=== PATIENT | male | born 1975 | race Caucasian/White ===

== ENCOUNTER 2023-03-13 17:06 | Inpatient (IN) | payer OTHER, SELFPAY ==
[2023-03-13] VITALS (24 sets, daily range): BP systolic 109–142; BP diastolic 70–104; PULSE 80–101; RESP 14–29; TEMP 36.5–36.7; O2SAT 91–99; BMI 31.3
--- NOTE | ~2023-03-13 | XR_ITS ---
EXAMINATION: XR chest 1V portable DATE: 03/13/2023 17:43 INDICATION: ST elevation myocardial infarction. TECHNIQUE: A single frontal view of the chest was obtained. COMPARISON: Chest 2 views 06/19/2007 FINDINGS: The chest demonstrates clear lungs without pneumonia, pleural effusion, or pneumothorax. Th e heart size is normal. IMPRESSION: 1. No acute cardiopulmonary disease. Reviewed, dictated and finalized at location E.
--- NOTE | 2023-03-13 17:07 | ECG_ITS ---
Measurements Intervals [place] Rate: 87 P: 54 MA: 172 QRS: 61 QRSD: 113 T: 16 QT: 344 QTc: 415 Interpretive Statements SINUS RHYTHM INCOMPLETE LEFT BUNDLE BRANCH BLOCK HIGH LATERAL ST ELEVATION MYOCARDIAL INJURY- ACUTE BASELINE WANDER- III, V1-V2, V4, V6 ABNORMAL ECG NO PREVIOUS ECG AVAILABLE FOR COMPARISON Electronically Signed On 03-13-2023 21:19:38 CDT by Maikol Dickinson D.O.
[2023-03-13 17:25] LABS: Basophils Absolute Auto 0.1 K/mm3 (0.0-0.1); Basophils Percent Auto 0.4 % (0.2-1.2); Eosinophils Absolute Auto 0.2 K/mm3 (0-0.3); Eosinophils Percent Auto 1.5 % (0-4.4); Hematocrit 43.7 % (42.0-52.0); Hemoglobin 15.3 g/dL (14.0-18.0); Immature Granulocyte Absolute 0.07 K/mm3 (0.00-0.031); Immature Granulocyte Percent A 0.4 % (0-0.5); Lymphocytes Absolute Auto 4.57 K/mm3 (0.9-3.2); Lymphocytes Percent Auto 29.2 % (18.3-44.2); Mean Corpuscular Hemoglobin 28.4 pg (26-34); Mean Corpuscular Volume 81.1 fl (80-100); Mean Platelet Volume 9.6 fl (7.4-10.4); Monocytes Percent Auto 6.1 % (2.6-8.5); Neutrophils Absolute Auto 9.8 K/mm3 (1.3-6.7); Neutrophils Percent Auto 62.4 % (45.5-73.1); Platelet Count Result 343 k/mm3 (150-375); Red Blood Count 5.39 M/mm3 (4.6-6.20); Red Cell Distribution Width 13.1 % (11.5-14.5); White Blood Count 15.7 K/mm3 (4.5-10.0)
[2023-03-13] MEDS: ASPIRIN 81 MG CHEWABLE TABLET 324 MG PO (17:27)
--- NOTE | 2023-03-13 17:27 | ED.CHESTPAIN ---
HPI - Chest Pain General Chief Complaint: Chest Pain Stated Complaint: chest pain/left shoulder pain Time Seen by Provider: 03/13/23 17:15 Source: patient Mode of arrival: wheelchair Limitations: no limitations History of Present Illness HPI narrative: Patient is a 48-year-old male with a history of hypertension, hyperlipidemia, coronary artery disease with history of LAD stenting from myocardial infarction in 2013, presenting to the emergency department for evaluation of chest pain. Patient reports intermittent chest pain for the past 3 hours, pain is in the left side of the chest with radiation to the left shoulder. Patient reports associated diaphoresis. He denies nausea, vomiting, shortness of breath. Pain does worsen with exertion. Patient denies any lower extremity edema or calf pain. No recent long car or air travel. No ripping or tearing sensation to the back or flank. No syncope. 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 Moreno. He does not recall the last time he had a stress test. He is not able to state what medications he takes. He reports that he does still smoke. Related Data Home Medications Medication Instructions Recorded Confirmed aspirin 81 mg tablet,delayed 81 mg PO DAILY 12/13/19 release ezetimibe 10 mg tablet 10 mg PO DAILY 12/13/19 fenofibrate nanocrystallized 145 145 mg PO DAILY 12/13/19 mg tablet lisinopril 10 mg tablet 40 mg PO DAILY 12/13/19 rosuvastatin 20 mg tablet 40 mg PO DAILY 12/13/19 Allergies Allergy/AdvReac Type Severity Reaction Status Date / Time No Known Allergies Allergy Verified 03/13/23 17:06 Review of Systems Review of Systems: CONSTITUTIONAL: Denies fever, chills, reports diaphoresis EYES: Denies visual changes, redness, or discharge. ENT: Denies rhinorrhea, congestion, sore throat, or otalgia. CARDIOVASCULAR: Reports left-sided chest pain without palpitations, or edema. RESPIRATORY: Denies cough or dyspnea. GASTROINTESTINAL: Denies abdominal pain, nausea, vomiting, or diarrhea. GENITOURINARY: Denies dysuria or hematuria. SKIN: Denies rash or itching. MUSCULOSKELETAL: Denies back pain, joint pain, or myalgia. NEUROLOGIC: Denies headache, numbness, or weakness. [facility] Past Medical History Medical History (Updated 03/13/23 @ 17:47 by Saige Abreu MD) Diabetes type 2, controlled Elevated liver function tests Essential hypertension Mixed hyperlipidemia Family History Family History Father Hypertension Mother Hypertension Grandparent Malignant neoplasm of prostate Social History Social History Smoking status: Light tobacco smoker Alcohol intake: never Exam Narrative: GENERAL: Awake, alert, conversant, patient is diaphoretic HEAD: Normocephalic, atraumatic. EYES: PERRLA and EOMI. ENT: Nares clear, no rhinorrhea or epistaxis. Mucous membranes moist. NECK: Supple. CHEST: No respiratory distress, breathing even and non labored, no chest wall tenderness HEART: Regular rate, sinus rhythm ABDOMEN:Non distended, non tender EXTREMITIES: Normal range of motion. No edema. SKIN: Warm, dry, no rash. NEURO:No focal deficits. Alert and oriented x3 Course Vital Signs Vital signs: Vital Signs Temperature 36.7 C 03/13/23 17:11 Pulse Rate 91 03/13/23 17:11 Respiratory Rate 16 03/13/23 17:11 Blood Pressure 131/70 03/13/23 17:11 Pulse Oximetry 97 03/13/23 17:11 Oxygen Delivery Room Air 03/13/23 17:11 Temperature 36.7 C 03/13/23 17:11 Pulse Rate 95 03/13/23 17:46 Respiratory Rate 28 H 03/13/23 17:46 Blood Pressure 142/104 H 03/13/23 17:46 Pulse Oximetry 97 03/13/23 17:46 Oxygen Delivery Room Air 03/13/23 17:20 MDM - Chest Pain MDM Narrative Medical decision making narrative: Medical decision making narrative: -Presentation: Patient presenting for evaluation of left-sided chest pain with
[2023-03-13] MEDS: SODIUM CHLORIDE 0.9% IV 1,000 ML 30 ML IV CONT (17:30)
[2023-03-13] MEDS: HEPARIN SODIUM 5,000 UNITS/ML VIAL 4000 UNITS IV PUSH (17:32)
[2023-03-13] MEDS: ONDANSETRON INJ 4 MG/2 ML VIAL IV PUSH (17:33)
[2023-03-13] MEDS: TICAGRELOR 90 MG TABLET 180 MG PO (17:34)
[2023-03-13 17:35] LABS: INR 0.9; Partial Thromboplastin Time 24.5 SECONDS (22.3-36.8); Prothrombin Time 12.9 Seconds (11.1-14.7)
[2023-03-13 17:38] LABS: Alanine Aminotransferase 37 U/L (6-50); Albumin Level 4.4 g/dL (3.5-5.1); Alkaline Phosphatase 79 U/L (38-126); Anion Gap 10 mmol/L (8-16); Aspartate Amino Transferase 29 U/L (17-59); Bilirubin,Total 0.8 mg/dL (0.2-1.3); Blood Urea Nitrogen 14 mg/dL (9-20); Carbon Dioxide 24 mmol/L (22-30); Chloride 100 mmol/L (98-107); Estimated CRCL calculation 139 ml/min; Estimated Glomerular Filt Rate > 60; Glucose 271 mg/dL (65-110); Lipase 92 U/L (23-300); Potassium 3.8 mmol/L (3.4-5.0); Sodium 134 mmol/L (137-145)
[2023-03-13] MEDS: MORPHINE SULFATE (*CRX) 2 MG/ML INJ IV PUSH (17:39)
--- NOTE | 2023-03-13 17:40 | PC.NURSE ---
17:15 Stemi Declared 17:15 O/H paged [phone] Beaver contacted [phone] [facility] for cardiac cath stand by
[2023-03-13 17:42] LABS: Anion Gap 9 mmol/L (8-16); Blood Urea Nitrogen 14 mg/dL (9-20); Carbon Dioxide 25 mmol/L (22-30); Chloride 99 mmol/L (98-107); Cholesterol 146 mg/dL (0-200); Estimated CRCL calculation 139 ml/min; Estimated Glomerular Filt Rate > 60; Glucose 267 mg/dL (65-110); HDL Direct 43 mg/dL; Potassium 3.9 mmol/L (3.4-5.0); Sodium 133 mmol/L (137-145); Triglycerides 226 mg/dL (<150)
[2023-03-13 17:43] LABS: INR 0.9; Prothrombin Time 12.7 Seconds (11.1-14.7)
[2023-03-13 17:44] LABS: Partial Thromboplastin Time 24.2 SECONDS (22.3-36.8)
[2023-03-13 17:52] LABS: LDL Cholesterol Direct 79 mg/dL
[2023-03-13 17:53] LABS: Troponin I 0.066 ng/mL (0.000-0.034)
[2023-03-13] MEDS: MORPHINE SULFATE (*CRX) 4 MG/ML INJ IV PUSH (17:58)
[2023-03-13 18:23] LABS: Troponin I 0.066 ng/mL (0.000-0.034)
--- NOTE | 2023-03-13 19:25 | PM.IMHP ---
H&P: HPI History of Present Illness Date/Time: 03/13/23 19:25 Chief Complaint: Chest pain x approximately 2 hours Narrative: 48-year-old male with known CAD, history of non ST elevation [place], status post PCI/ 3.25 x 23 mm Xience everolimus eluting stent placement on 02/08/2013; hypertension, ? Diabetes mellitus, dyslipidemia, tobacco abuse. Patient presented to [facility] Emergency Room where personal transportation with complaints of chest pain that started about 2 hours prior to arrival. He denied any associated symptoms including shortness of breath, palpitation, dizziness or syncope. He has known CAD, and reported compliance with medical regimen although patient did not recall what medications he is on. EKG in the emergency room which I personally evaluated showed sinus rhythm, ST-elevation in the lateral leads with reciprocal ST depression. Cardiac catheterization lab was activated. Patient received aspirin, loading dose of ticagrelor, and loading dose unfractionated heparin in the ER. Emergent coronary angiogram showed multivessel CAD- 100% thrombotic occlusion of large caliber proximal segment of ramus intermedius -infarct related vessel; 60-70% InStent restenosis proximal LAD, high-grade ostial stenosis diagonal branch, totally occluded RCA with [id number] collaterals. Patient underwent successful primary PCI/ SAMRA x1 proximal ramus intermedius with mosque of DAISY 3 flow. 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 Left ventriculogram showed dyskinetic apical inferior segment, hyperdynamic basal segments, ejection fraction about 60%. LVEDP 29 mmHg. Chest pain resolved after successful PCI. Review of Systems Review of Systems: General: Negative for fever, chills, fatigue Psychological: Negative for anxiety, depression Ophthalmic: negative for loss of vision ENT: Negative for epistaxis, headaches Allergy and immunology: Negative for hives, nasal congestion Hematologic and lymphatic: Negative for overt bleeding problems Endocrine: Negative for hot flashes, palpitations Respiratory: Negative for cough, hemoptysis Cardiovascular: positive for chest pain, no shortness of breath, palpitation, dizziness or syncope Gastrointestinal: Negative for abdominal pain, nausea, vomiting, hematochezia Musculoskeletal: Negative for myalgia, joint pains Neurological: Negative for weakness Dermatological: Negative for rash, skin discoloration PMFSH Past Medical History Medical History (Updated 03/13/23 @ 19:33 by Catalino Beaver MD) Diabetes type 2, controlled Elevated liver function tests Essential hypertension Mixed hyperlipidemia Surgical History Surgical History (Updated 03/13/23 @ 19:27 by Catalino Beaver MD) H/O hernia repair Family History Family History Father Hypertension Mother Hypertension Grandparent Malignant neoplasm of prostate Social History Social History (Updated 03/13/23 @ 19:28 by Catalino Beaver MD) Smoking status: Current every day smoker Alcohol intake: never Comments denies illicit drugs Meds Home Medications and Allergies Home Medications Medication Instructions Recorded Confirmed Type aspirin 81 mg tablet,delayed 81 mg PO DAILY 12/13/19 History release ezetimibe 10 mg tablet 10 mg PO DAILY 12/13/19 History fenofibrate nanocrystallized 145 145 mg PO DAILY 12/13/19 History mg tablet lisinopril 10 mg tablet 40 mg PO DAILY 12/13/19 History rosuvastatin 20 mg tablet 40 mg PO DAILY 12/13/19 History pantoprazole 40 mg tablet,delayed 40 mg PO QAM #90 tabs 08/01/22 Rx release (Protonix) venlafaxine 150 mg 150 mg PO DAILY #90 caps 08/01/22 Rx capsule,extended release 24 hr Allergies Allergy/AdvReac Type Severity Reaction Status Date / Time No Known Allergies Allergy Verified 03/13/23 17:06 Vital Signs Vital Signs - 24 hr 03/13/23 1
--- NOTE | 2023-03-13 19:42 | WPDCARDPROC ---
Cardiac Cath Procedure Note Date of procedure:: 03/13/23 Performing physician:: Catalino Beaver MD Procedure Procedure performed:: CARDIAC CATHETERIZATION AND PERCUTANEOUS CORONARY INTERVENTION REPORT DATE OF PROCEDURE: 03/13/2023 INDICATION FOR PROCEDURE: acute coronary syndrome- ST segment elevation in lateral leads BRIEF CLINICAL HISTORY:48-year-old male with known CAD, history of non ST elevation [place], status post PCI/ 3.25 x 23 mm Xience everolimus eluting stent placement on 02/08/2013; hypertension, ?? Diabetes mellitus, dyslipidemia, tobacco abuse.? Patient presented to [facility] Emergency Room on 03/13/2023 via personal transportation with complaints of chest pain that started about 2 hours prior to arrival.? He denied any associated symptoms including shortness of breath, palpitation, dizziness or syncope.? He has known CAD, and reported compliance with medical regimen although patient did not recall what medications he is on.? EKG in the emergency room showed sinus rhythm, ST-elevation in the lateral leads with reciprocal ST depression.? Cardiac catheterization lab was activated.? Patient received aspirin, loading dose of ticagrelor, and loading dose? unfractionated heparin in the ER. PROCEDURES PERFORMED: 1. Emergent left heart catheterization- Selective left and right coronary angiogram; left ventriculogram and hemodynamic assessment 2. 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 Deployment of Mynx vascular closure device 4. Moderate sedation-CPT code 95084 MODERATE SEDATION: Midazolam 1 mg; fentanyl 25 mcg. Start time 5 , Stop time 191 ; Total [id number] time 59 minutes; Maite Kapoor RN was trained observer for moderate sedation. ACCESS SITE: Right common femoral artery PROCEDURE NOTE: After obtaining informed consent, patient was brought to catheterization lab and prepped and draped in a usual sterile manner. After local anesthesia with lidocaine, right common femoral artery access was taken with micropuncture needle followed by insertion of a 6 Croatian sheath. Selective left and right coronary angiogram was performed using 5 Croatian JL4 and JR4 diagnostic catheters respectively. Orthogonal views were taken. After completion of PCI, a 5 Croatian pigtail catheter was advanced in the LV cavity and was flushed with normal saline. LV pressure measurement was performed. After this, left ventriculogram was performed. The catheter was flushed again, and gradient across the aortic valve was measured on the pullback of the catheter. Angiographic findings and details of intervention are given below. FINDINGS: LEFT MAIN CORONARY: A large caliber vessel, no angiographically significant focal stenosis. The vessel trifurcates into LAD, ramus intermedius and small caliber lcx branches. LEFT ANTERIOR DESCENDING ARTERY: The LAD is medium caliber vessel with about 60-70% InStent restenosis in the proximal segment. Mild diffuse irregularities plaque is seen in the mid segment. The vessel tapers distally and reaches the LV apex. Diagonal branch is a small to medium caliber vessel with high-grade about 90-95% stenosis at the ostium and in the proximal segment. RAMUS INTERMEDIUS: A large caliber vessel, 100% thrombotic occlusion in the proximal segment -infarct related vessel. After stenting, the vessel is seen as a large caliber vessel which gives rise to superior and inferior branches distally. Superior branch is large in caliber, inferior branch is a smaller caliber with diffuse disease in the proximal segment. LEFT CIRCUMFLEX ARTERY: The left circumflex artery is a diminutive vessel with severe diffuse disease. Czjs-bu-aukst collaterals are seen on left coronary an
--- NOTE | 2023-03-13 19:44 | PC.NURSE ---
Report received from refuse laborer
--- NOTE | 2023-03-13 19:59 | ADMGEN ---
This patient, Jairo Negron, was admitted to ICU 2 on 03/13/23 at 1950. Patient/family oriented to hospital policies and general routines including ID bracelet, bed and alarms, visiting hours, pain management, procedures, bathroom and other care routines, personal items, smoking policy, room service/diet, and visiting hours. Information on how to activate the Rapid Response Team has been discussed. Patient/Family are encouraged to report perceived risks to care and to ask questions if they do not understand what they are told or what they should do.
[2023-03-13] MEDS: SODIUM CHLORIDE 0.9% IV 1,000 ML 125 ML IV CONT (21:30)
[2023-03-13] MEDS: METOPROLOL TARTRATE 12.5 MG TABLET PO (21:31)
[2023-03-13 23:30] LABS: Cholesterol 131 mg/dL (0-200); HDL Direct 39 mg/dL; Triglycerides 173 mg/dL (<150)
[2023-03-13 23:41] LABS: LDL Cholesterol Direct 71 mg/dL
[2023-03-14] VITALS (17 sets, daily range): BP systolic 107–148; BP diastolic 71–97; PULSE 78–104; RESP 20–30; TEMP 36.4–36.8; O2SAT 91–99; BMI 31.3
--- NOTE | 2023-03-14 | ECHO_ITS ---
Patient Info Name: Jairo Negron Age: 48 years : 1975 Gender: Male Ht: 71 in Wt: 224 lbs BSA: 2.28 m2 HR: 92 bpm BP: 113 / 72 mmHg Heart Rhythm: Sinus Rhythm Technical Quality: Good Exam Date: 03/14/2023 8:07 AM Exam Location: [facility] Pulmonary Patient Status: Inpatient Admit Date: 03/13/2023 Staff Ordering Physician: Catalino Beaver MD Summer Analyst: Esmer Schwatrz RDCS Attending Provider: Catalino Beaver MD Exam Type: CA echo doppler color flow Study Info Indications - ACUTE GA Complete two-dimensional, color flow and Doppler transthoracic echocardiogram is performed. Summary 1. Complete two-dimensional, color flow and Doppler transthoracic echocardiogram is performed. 2. Normal left ventricular size with posterior akinesia and lateral hypokinesia global ejection fraction 40-45%. 3. Grade 2 diastolic noncompliance. 4. No significant valvular dysfunction. Left Ventricle Left ventricular chamber dimension is normal. Left ventricular systolic function is mildly reduced, estimated at 40-45%. The left ventricular diastolic function is grade II diastolic dysfunction. Right Ventricle Right ventricular chamber dimension is normal. Left Atria Left atrial chamber dimension is mildly enlarged. Right Atria Right atrial chamber dimension is normal. Aortic Valve The aortic valve is normal. Pulmonic Valve The pulmonic valve is not well visualized. Mitral Valve The mitral valve has normal leaflets. There is no mitral valve regurgitation. Tricuspid Valve The tricuspid valve leaflets are normal. Pericardium/Pleural The pericardium appears normal. Aorta The aortic root size at the sinus of Valsalva is normal. Report Signatures
--- NOTE | 2023-03-14 08:40 | WPDCNINT ---
Assessment and Plan Assessment and plan (1) ST elevation (STEMI) myocardial infarction: Code(s): I21.3 - ST elevation (STEMI) myocardial infarction of unspecified site Status: Acute Assessment and Plan: Patient presented with chest pain to the ED on 03/13/2023: He complained of left-sided chest pain with radiation to the left shoulder, EKG was concerning for anterior lateral ST-elevation [place]. code STEMI was activated, patient was taken to laboratory chemical assistant where he had a balloon angioplasty and stenting of the totally occluded proximal ramus intermedius using min SAMRA x1, EF about 60%, LVEDP was 29 mmHg. About 60-70% in stent restenosis proximal LAD, high-grade 90-95% stenosis ostial proximal segment of diagonal branch. Chronic total occlusion of proximal RCA the bridging collaterals, left to right collaterals. LV dysfunction with dyskinesis of apical segments, basal segments hyperkinetic. -continue aspirin, atorvastatin, Brilinta, beta-aneesh -cardiology following the patient (2) Essential hypertension: Code(s): I10 - Essential (primary) hypertension Status: Acute Assessment and Plan: Continue metoprolol and lisinopril (3) Diabetes type 2, controlled: Qualifiers: Diabetes mellitus half-way insulin use: without director long term care use Diabetes mellitus complication status: without complication Qualified Code(s): E11.9 - Type 2 diabetes mellitus without complications Code(s): E11.9 - Type 2 diabetes mellitus without complications Status: Acute Assessment and Plan: Hemoglobin A1c was 8.0 -will start Accu-Cheks and sliding scale insulin -patient will require insulin or oral hypoglycemic upon discharge (4) Mixed hyperlipidemia: Code(s): E78.2 - Mixed hyperlipidemia Status: Acute Assessment and Plan: Continue high-dose statin (5) Tobacco abuse: Code(s): Z72.0 - Tobacco use Status: Acute Assessment and Plan: Patient smokes 1 packet of cigarettes daily, I counseled him on cessation of smoking and lifestyle changes to which she is agreeable Plan DVT prophylaxis: SCDs Stress ulcer prophylaxis: Not indicated Nutrition: Heart healthy diet Code Status: Full code Critical Care Time Spent: 45 minutes Due to a high probability of clinically significant, life threatening deterioration, the patient required my highest level of preparedness to intervene emergently and I personally spent this critical care time directly and personally managing the patient. This critical care time included obtaining a history; examining the patient; pulse oximetry; ordering and review of studies; arranging urgent treatment with development of a management plan; evaluation of patient's response to treatment; frequent reassessment; and discussions with other providers. It was exclusive of separately billable procedures and treating other patients and teaching time. Please see Assessment and Plan section and the rest of the note for further information on patient assessment and treatment This dictation may have been done utilizing a voice recognition system. Attempts have been made to correct errors. However, there may be uncorrected grammatical, spelling, and recognitions errors present. Upsetting Machine Operator Consult Note Consult date: 03/14/23 Reason for consult: STEMI status post balloon angioplasty and stenting of the totally occluded proximal ramus intermedius using drug-eluting stent, EF 60%, LVEDP was 29 mmHg. HPI: Jairo Negron is a 48 year old male past medical history of known CAD, history of non ST-elevation [place] status post PCI with SAMRA to proximal LAD in February 2013, essential hypertension, diabetes, dyslipidemia, tobacco use presented the ED on 03/13/2023 with complains of chest pain that started 2 hours prior to arrival in the ED. He complained of left-sided chest pain with radiation to the left shoulder, EKG was concerning for anterior lateral ST-elevation [place]. code STEMI was
[2023-03-14] MEDS: ASPIRIN 81 MG ENTERIC TABLET PO (09:58)
[2023-03-14] MEDS: lisinopriL 20 MG TABLET PO (09:58)
[2023-03-14] MEDS: METOPROLOL TARTRATE 12.5 MG TABLET PO ×2 (09:58→20:06)
[2023-03-14] MEDS: TICAGRELOR 90 MG TABLET PO ×2 (09:58→20:05)
[2023-03-14] MEDS: ATORVASTATIN 40 MG TABLET 80 MG PO (09:58)
[2023-03-14 12:10] LABS: Glucose Point of Care 177 mg/dl (65-105)
--- NOTE | 2023-03-14 14:01 | PM.PNCARD ---
Progress Note: A&P Assessment and Plan (1) ST elevation (STEMI) myocardial infarction: Code(s): I21.3 - ST elevation (STEMI) myocardial infarction of unspecified site Status: Acute Assessment and Plan: 48-year-old male with known CAD, history of non ST elevation [place], status post PCI/ 3.25 x 23 mm Xience everolimus eluting stent placement on 02/08/2013; hypertension, ? Diabetes mellitus, dyslipidemia, tobacco abuse. Patient presented to hospital with approximately 2 hour history of chest pain, found to have ST elevation in the lateral leads with reciprocal ST depression. Coronary angiogram showed multivessel CAD, 100% thrombotic occlusion of proximal segment of large caliber ramus intermedius-infarct related vessel; about 60-70% ISR proximal LAD, severe disease diagonal branch, severe disease small LCX, HANDBAG PARTS CUTTER RCA with [id number] collaterals. Patient is status post primary PCI/ SAMRA x1 proximal ramus intermedius with sabianism of DAISY 3 flow. DAPT with ASA, Brilinta Resume other home medications including high-dose statin, ACEI. patient has significant disease including proximal LAD ISR, high-grade stenosis a diagonal branch, HANDBAG PARTS CUTTER RCA with [id number] collaterals. Revascularization options include multivessel PCI versus surgical revascularization with CABG, later option would be preferred if patient is diabetic with surgical targets for revascularization including LAD, diagonal branch, distal RCA branches. Reviewed findings and intervention from yesterday's angiogram as well as treatment options for revascularization. To discuss with Dr. Moreno over weekend. OK to downgrade to IMU Likely discharge tomorrow if he remains stable (2) Essential hypertension: Code(s): I10 - Essential (primary) hypertension Status: Acute Assessment and Plan: Optimal blood pressure control. (3) Tobacco abuse: Code(s): Z72.0 - Tobacco use Status: Acute Assessment and Plan: Smoking cessation counseling was done. Subjective Date/time seen: 03/14/23 14:01 Cardiology follow up for CAD, STEMI Interval history: Feeling well today s/p PCI yesterday evening with SAMRA x 1 to the ramus. Has intermittent mild chest pressure, different from crushing pressure he was feeling prior to PCI yesterday. No shortness of breath or palpitations Review of Systems Review of Systems: All systems reviewed & are unremarkable except as noted in HPI and below Exam Const: General: comfortable, no acute distress, alert and awake Orientation/consciousness: patient oriented x3 HENMT: Head: normal to inspection Eyes: General: appearance normal, both eyes and all related structures Pupils: Equal, round and reactive pupils present Neck: Neck: normal visual inspection, supple and no JVD Carotids: normal carotid upstroke Resp: Effort & Inspection: normal respiratory effort Auscultation: clear to auscultation bilaterally Cardio: Rate: regular rate Rhythm: regular rhythm Heart sounds: S1 normal heart sound present, S2 normal heart sound present and no murmurs GI: Auscultation: normal bowel sounds Skin: General skin exam: normal color Other: R groin arterial access site free from bleeding, hematoma Neuro: General: patient oriented x3 Cranial nerves: Yes Equal, round and reactive pupils present Extrem: General: normal to inspection Psych: Appearance: grossly normal Mental Status: mental status grossly normal Objective Data Vital Signs Vital Signs: Vital Signs - 24 hr 03/13/23 17:11 03/13/23 17:20 03/13/23 17:23 Temperature 36.7 C Pulse Rate 91 101 H 98 Pulse Rate [Bilateral Pedal (Dorsalis Pedis) Palpation] Respiratory Rate 16 22 H Blood Pressure 131/70 131/89 Pulse Oximetry 97 98 Oxygen Delivery Room Air Room Air 03/13/23 17:34 03/13/23 17:24 03/13/23 17:27 Temperature Pulse Rate 98 99 97 Pulse Rate [Bilateral Pedal (Dorsalis Pedis) Palpation] Respirat
[2023-03-14 17:03] LABS: Glucose Point of Care 158 mg/dl (65-105)
[2023-03-14] MEDS: ROSUVASTATIN 10 MG TABLET 40 MG PO (20:05)
[2023-03-14] MEDS: EZETIMIBE 10 MG TABLET PO (20:06)
[2023-03-14] MEDS: FENOFIBRATE NANOCRYSTALLIZED 145 MG TABLET PO (20:06)
--- NOTE | 2023-03-14 22:35 | PC.NURSE ---
This patient, Jairo Negron, was received from [ICU-02] on 03/14/23 at 2235. Patient/family oriented to unit policies and routines
[2023-03-14 22:36] LABS: Glucose Point of Care 256 mg/dl (65-105)
--- NOTE | 2023-03-14 22:39 | PC.NURSE ---
This patient, Jairo Negron, was transferred to [206-2 ] on 03/14/23 at 2230. Personal belongings sent with patient. Report given to [BLAZE Cruz]. Appropriate documentation sent with patient.
[2023-03-15] VITALS (12 sets, daily range): BP systolic 104–109; BP diastolic 59–65; PULSE 90–114; RESP 20; TEMP 35.9–36.6; O2SAT 96–98
[2023-03-15 08:00] LABS: Glucose Point of Care 199 mg/dl (65-105)
[2023-03-15] MEDS: ASPIRIN 81 MG ENTERIC TABLET PO (09:49)
[2023-03-15] MEDS: lisinopriL 20 MG TABLET PO (09:49)
[2023-03-15] MEDS: TICAGRELOR 90 MG TABLET PO (09:49)
[2023-03-15] MEDS: METOPROLOL TARTRATE 12.5 MG TABLET PO (09:49)
[2023-03-15 11:47] LABS: Glucose Point of Care 196 mg/dl (65-105)
--- NOTE | 2023-03-15 14:24 | PM.DS ---
DS: Admitting Diagnosis Discharge Date 03/15/2022 Admitting Diagnosis Inferior STEMI DS: Discharge Diagnosis Discharge Diagnosis (1) ST elevation (STEMI) myocardial infarction: Code(s): I21.3 - ST elevation (STEMI) myocardial infarction of unspecified site Status: Acute Assessment and Plan: The patient has a history of CAD, non STEMI, status post drug-eluting stent of the Left anterior descending in February 2013. He also has a history of hypertension, elevated blood sugars, dyslipidemia, depression and tobacco abuse. He was admitted with left shoulder and chest discomfort for 2 hours, and found to have a lateral STEMI. The STEMI team was called, and Dr. Beaver found there was an acute occlusion of the large ramus. This was stented with a 4.0 x 26 mm Biotronik sirolimux drug-eluting stent. The RCA was completely occluded and filled via collaterals; he attempted to open this as well but this appeared to be a chronic total occlusion and was unsuccessful. His catheterization also showed 60-70% in stent restenoses of the proximal Left anterior descending, 90-95% stenosis of the ostial/proximal diagonal, small caliber diffuse disease circumflex, and akinesis/dyskinesis of the apex. Ejection fraction was approximately 60%, elevated LVEDP of 629 mmHg. ISR with performed and the Left anterior descending lesion appeared significant. The patient did well, with no chest pain, significant arrhythmias, or heart failure. Vital signs remained stable. He was up and ambulating on the day of discharge. However, with his multivessel disease and new onset diabetes, I recommended bypass surgery in the next several weeks; he is stable and is no emergency. He is interested in pursuing this. We will help him with referral to a cardiothoracic surgeon. He would like to go to [facility]. He was counseled about his heart disease, failure to comply with medical therapy particular dual anti-platelet therapy can result in stent thrombosis, mi and . Samples of Brilinta as well as a prescription with left with the patient's chart. He was counseled about heart healthy diet, smoking cessation, med activity, follow-up etc.. Anticipate early follow-up in the office and hopefully return to work within the next 2 weeks. Hopefully we can get him and cardiac rehab which I think will help as well. (2) Ischemic cardiomyopathy: Code(s): I25.5 - Ischemic cardiomyopathy Status: Acute Assessment and Plan: Echo showed EF 40-45% with diastolic dysfunction and no significant valve disease. Lisinopril dose increased, metoprolol added. Systolic blood pressure 104/59 on discharge. (3) Tobacco abuse: Code(s): Z72.0 - Tobacco use Status: Acute Assessment and Plan: The patient uses tobacco but now states that he will stop completely. Discussed methods of smoking cessation. He is interested in using Chantix and nicotine gum. Discussed the benefits of Chantix as well as the risks of possibly aggravating underlying depression. His depression seems controlled on his current medications and there does not appeared to be a contraindication in use of Chantix with his other medications. (4) Mixed hyperlipidemia: Code(s): E78.2 - Mixed hyperlipidemia Status: Acute Assessment and Plan: Total cholesterol 131, LDL 71, triglycerides 173 taking is Yimi I have 10 q.d., fenofibrate 145 q.d. and rosuvastatin 40 mg q.h.s.. Good, although it may be better for him in the long run to be lower. Discussed the possibility of other therapies including injectables which we will review on office follow-up. (5) Essential hypertension: Code(s): I10 - Essential (primary) hypertension Status: Acute Assessment and Plan: Blood pressure appeared controlled during this stay. (6) Diabetes type 2, controlled: Qualifiers: Diabetes mellitus complication status: without complication Diabe
== END 2023-03-15 15:34 | disposition home or self-care (01) | DRG 247 ==
LOC: ANHCATHLAB 21:14 → ANHED 21:14 → ANHICU 21:15 → ANHIMU 03-14 22:23
PROVIDERS: Emergency Medicine; Admitting Provider Internal Medicine Cardiovascular Disease; Emergency Provider Emergency Medicine; PCP Family Medicine; Visit Provider Internal Medicine Cardiovascular Disease
PROC: 4A023N7 Measurement of Cardiac Sampling and Pressure, Left Heart, Percutaneous Approach (ICD-10-PCS; CPT 93452; principal; 2023-03-13 17:30)
PROC: 027034Z Dilation of Coronary Artery, One Artery with Drug-eluting Intraluminal Device, Percutaneous Approach (ICD-10-PCS; 2023-03-13 17:30)
PROC: 02703ZZ Dilation of Coronary Artery, One Artery, Percutaneous Approach (ICD-10-PCS; CPT 92920; 2023-03-13 17:30)
PROC: 027034Z Dilation of Coronary Artery, One Artery with Drug-eluting Intraluminal Device, Percutaneous Approach (ICD-10-PCS; 2023-03-13 17:30)
DX: I21.29 ST elevation (STEMI) myocardial infarction involving other sites (principal); I25.10 Atherosclerotic heart disease of native coronary artery without angina pectoris; I25.82 Chronic total occlusion of coronary artery; I25.5 Ischemic cardiomyopathy; I10 Essential (primary) hypertension; E78.5 Hyperlipidemia, unspecified; E11.9 Type 2 diabetes mellitus without complications; F17.210 Nicotine dependence, cigarettes, uncomplicated; I25.2 Old myocardial infarction; Z95.5 Presence of coronary angioplasty implant and graft; Z79.82 Long term (current) use of aspirin
CPT/HCPCS: 36415; 71045; 80048; 80053; 80061; 82948; 83036; 83690; 84484; 85025; 85610; 85730; 86850; 86900; 86901; 92920; 93005; 93306; 93458; 96374; 96375; 99291; A9270; C1725; C1760; C1769; C1874; C1887; C1894; C9606; G0269; J0583; J1644; J2250; J2270; J2405; J3010; J7030; J7040

== ENCOUNTER 2024-06-26 11:23 | Emergency (ER) | payer OTHER, SELFPAY ==
[2024-06-26 11:34] VITALS: BP 147/90; PULSE 117; RESP 18; TEMP 36.7; O2SAT 98
--- NOTE | 2024-06-26 11:51 | ED.BACK ---
HPI - Back Pain/Injury General Chief Complaint: Back Pain/Injury Stated Complaint: Lower Back,Knee and Foot Pain Time Seen by Provider: 06/26/24 11:52 Source: patient Mode of arrival: ambulatory Limitations: no limitations History of Present Illness HPI Narrative: 49-year-old male presented for complaint of right lower back pain radiating to the right hip and back of the thigh to the knee. Onset 2 days. Endorses a history of sciatica. He has been prescribed prednisone by his PCP which he started yesterday and reports improvement. States yesterday head pain was worse and nearly debilitating. Today he is able to walk inset. Pain is worse with ambulation. Denies numbness, tingling, weakness of the lower extremities, or change in gait, saddle paresthesia or loss of bowel or bladder. Related Data Home Medications Medication Instructions Recorded Confirmed aspirin 81 mg tablet,delayed 81 mg PO HS 12/13/19 06/26/24 release ezetimibe 10 mg tablet 10 mg PO HS 12/13/19 06/26/24 fenofibrate nanocrystallized 145 145 mg PO HS 12/13/19 06/26/24 mg tablet clopidogrel 75 mg tablet (Plavix) 75 mg PO DAILY 06/02/23 06/26/24 Allergies Allergy/AdvReac Type Severity Reaction Status Date / Time No Known Allergies Allergy Verified 06/26/24 11:39 Review of Systems Review of Systems: CONSTITUTIONAL: Denies body aches, fever, chills EYES: Denies visual changes CARDIOVASCULAR: Denies chest pain, palpitations, or edema. RESPIRATORY: Denies cough or dyspnea. GASTROINTESTINAL: Denies abdominal pain, nausea, vomiting, or diarrhea. SKIN: Denies rash, itching, or wounds. MUSCULOSKELETAL: reports back/right hip pain NEUROLOGIC: Denies headache, numbness, tingling, or weakness. All systems reviewed & are unremarkable except as noted in HPI and below PMFSH Past Medical History Medical History BMI 30.0-30.9,adult Diabetes type 2, controlled Elevated liver function tests Essential hypertension History of depression Ischemic cardiomyopathy Mixed hyperlipidemia ST elevation (STEMI) myocardial infarction Surgical History Surgical History H/O heart bypass surgery H/O hernia repair History of appendectomy Family History Family History Father Hypertension Acute myocardial infarction Mother Hypertension Grandparent Malignant neoplasm of prostate Sibling No problems noted. Social History Social History Smoking packs per day: 1 Smoking cigarettes per day: 20.0 Years smoked: 25 Smoking pack-years: 25.00 Smoking status: Former smoker Tobacco type: cigarettes Second hand tobacco smoke exposure: Yes Smoking end date: 04/06/23 Alcohol intake: never Substance use: never Substance use type: does not use Lack of Transportation: No Lack of Food: Never True Current Housing: I Have Housing Concerned About Future Housing: No Difficulty Paying Gas/Electric Bills: No Difficulty Paying for Meds: No Currently Unemployed: No Education: High School Diploma/GED Difficulty w/ Childcare or Family Care: No Living arrangements: with family Occupation/Education: occupation Additional occupation/education comments: [employer] Gender identity (if verbalized by the patient): Male Spiritual care concerns: No Comments At time of signature, I have reviewed and agree with nursing past medical, surgical, social and family history unless otherwise noted. Please see nursing chart for further information. There is no relevant family history pertinent to the presenting complaint Exam Narrative: GENERAL: Well-appearing CHEST: Speaks in full sentences. No respiratory distress. HEART: Regular rate and rhythm. Normal and equal peripheral pulses. MUSC: No Verte
== END 2024-06-26 12:07 | disposition home or self-care (01) ==
PROVIDERS: Emergency Provider Nurse Practitioner Family; PCP Family Medicine
DX: M54.50 Low back pain, unspecified (principal); Z87.891 Personal history of nicotine dependence; E11.9 Type 2 diabetes mellitus without complications; I10 Essential (primary) hypertension; E78.2 Mixed hyperlipidemia; I25.2 Old myocardial infarction; I25.5 Ischemic cardiomyopathy; Z79.82 Long term (current) use of aspirin
CPT/HCPCS: 99213; G0463

== ENCOUNTER 2024-07-07 10:08 | Outpatient (CLI) | payer OTHER, SELFPAY ==
--- NOTE | ~2024-07-07 | XR_ITS ---
EXAMINATION: XR lumbar spine 2-3V DATE: 07/07/2024 10:29 INDICATION: Right-sided low back pain. TECHNIQUE: 3 views of lumbar spine including standing views were obtained. COMPARISON: None. FINDINGS: There is 7 degrees dextrocurvature of lumbar spine. Vertebral body heights are normal. Inte rvertebral disc heights are normal. There are endplate osteophytes at most levels. There is multileve l [id number] facet joint osteoarthritis. IMPRESSION: 1. Mild lumbar spondylosis. Reviewed, dictated and finalized at location A. IMPRESSION: 1. Mild lumbar spondylosis.
--- NOTE | ~2024-07-07 | XR_ITS ---
EXAMINATION: XR pelvis 1-2V DATE: 07/07/2024 10:30 INDICATION: Right-sided low back pain and sciatica. TECHNIQUE: An anteroposterior view of the pelvis was obtained. COMPARISON: None. FINDINGS: Alignment is normal. No fracture. There is mild lumbar spondylosis. There is mild osteoarth ritis of the hips. IMPRESSION: 1. Mild osteoarthritis of the hips. Reviewed, dictated and finalized at location A.
== END 2024-07-07 10:09 | disposition home or self-care (01) ==
PROVIDERS: PCP Family Medicine; Visit Provider Chiropractor
DX: M16.0 Bilateral primary osteoarthritis of hip (principal); M47.26 Other spondylosis with radiculopathy, lumbar region
CPT/HCPCS: 72100; 72170